=== PATIENT | female | born 1975 | race Caucasian/White ===

== ENCOUNTER 2019-01-20 19:47 | Emergency (ER) | payer BC ==
[2019-01-20 20:13] VITALS: BP 135/66
[2019-01-20] MEDS ORDERED: Sulfamethox/Trimethoprim DS 800/160* TAB PO ONE (20:49)
[2019-01-20] MEDS ORDERED: Phenazopyridine TAB* 100 MG PO ONE (20:49)
--- NOTE | 2019-01-20 20:54 | UC ---
Complaint Female HPI - HPI Summary HPI Summary: 43-year-old female presents with onset of general malaise, low back pain, dysuria, frequency, urgency, and mild nausea since yesterday. Denies fever, chills, abdominal pain, vomiting, hematuria, vaginal discharge, or abnormal bleeding. - History Of Current Complaint Chief Complaint: UCGU Stated Complaint: LOW BACK PAIN/URINARY SYMPTOMS Time Seen by Provider: 01/20/19 20:36 Hx Obtained From: Patient Hx Last Menstrual Period: "a week ago" Pain Intensity: 7 - Allergies/Home Medications Allergies/Adverse Reactions: Allergies Allergy/AdvReac Type Severity Reaction Status Date / Time No Known Allergies Allergy Verified 01/20/19 20:08 PMH/Surg Hx/FS Hx/Imm Hx Previously Healthy: Yes - Denies significant PMH - Surgical History Surgical History: Yes Surgery Procedure, Year, and Place: Tonsils - Family History Known Family History: Positive: Non-Contributory - Social History Occupation: Employed Full-time Lives: With Family Alcohol Use: None Substance Use Type: None Smoking Status (MU): Never Smoked Tobacco Review of Systems All Other Systems Reviewed And Are Negative: Yes Constitutional: Positive: Chills. Negative: Fever Skin: Negative: Rash Respiratory: Positive: Negative Cardiovascular: Positive: Negative Gastrointestinal: Positive: Abdominal Pain - suprapubic. Negative: Vomiting, Nausea Genitourinary: Positive: Dysuria, Frequency, Urgency. Negative: Hematuria, Vaginal/Penile Discharge, Abnormal Bleeding Musculoskeletal: Positive: Negative Neurological: Positive: Negative Is Patient Immunocompromised?: No Physical Exam - Summary Physical Exam Summary: GENERAL APPEARANCE: Alert and cooperative adult female who appears ill, non- toxic, and in no acute distress. CARDIAC: Normal S1 and S2. No S3, S4 or murmurs. Rhythm is regular. There is no peripheral edema, cyanosis or pallor. Extremities are warm and well perfused. Capillary refill is less than 2 seconds. Peripheral pulses intact. LUNGS: Clear to auscultation without rales, rhonchi, wheezing or diminished breath sounds. ABDOMEN: Positive bowel sounds. Soft, nondistended, nontender. No guarding or rebound. No masses or hepatosplenomegally. Mild bilateral CVA tenderness. MUSKULOSKELETAL: ROM intact to all extremities. No joint erythema or tenderness. Normal muscular development. Normal gait. SKIN: Skin normal color, texture and turgor with no lesions or eruptions. Triage Information Reviewed: Yes Vital Signs: Initial Vital Signs Temp 99.7 F 01/20/19 20:09 Pulse 102 01/20/19 20:09 Resp 20 01/20/19 20:09 BP 135/66 01/20/19 20:09 Pulse Ox 96 01/20/19 20:09 Vital Signs Reviewed: Yes Complaint Female Dx - Course Course Of Treatment: 43-year-old female presents with onset of general malaise, low back pain, dysuria, frequency, urgency, and mild nausea since yesterday. Denies fever, chills, abdominal pain, vomiting, hematuria, vaginal discharge, or abnormal bleeding. Afebrile. Mildly hypertensive and tachycardic otherwise vital signs stable. On exam patient appeared ill but nontoxic and in no acute distress. She had some mild bilateral CVA tenderness but otherwise had an unremarkable exam. Her [id number] urinalysis showed 1+ leukocyte esterase, 3+ blood, positive nitrites, 3+ protein, trace ketones, and 1+ bilirubin. Urine culture is pending. Reviewed the results with the patient. We discussed that her symptoms and urinalysis were suggestive of a urinary tract infection and with her CVA tenderness could be an early pyelonephritis. Will plan to treat her with Bactrim DS 1 tablet twice daily 7 days and provided her with Pyridium 100 mg 3 times a day 2 days to help with her discomfort. She received the first dose of each of these medications in the clinic. She is to follow-up with her primary care provider in 3 days if symptoms do not improve. Anticipatory guidance and warning symptoms were reviewed with the patient. Verbalizes understanding and agrees with plan of care. - Differential Dx/Diagnosis Differential Diagnosis/HQI/PQRI: Renal Colic, Urinary Tract Infection, Other - Pyelonephritis Provider Diagnosis: UTI (urinary tract infection) Discharge ED - Sign-Out/Discharge Documenting (check all that apply): Patient Departure All imaging exams completed and their final reports reviewed: No Studies - Discharge Plan Condition: Stable Disposition: HOME Prescriptions: Phenazopyridine TAB* [Pyridium 100 mg TAB*] 100 mg PO TID #4 tab Sulfamethox/Trimethoprim DS* [Bactrim DS 800/160 TAB*] 1 tab PO BID #12 tab Patient Education Materials: Urinary Tract Infection in Women (ED) Referrals: Jovana Brunson MD [Primary Care Provider] - 3 Days (If no improvement in symptoms.) Additional Instructions: Your urine test in the clinic today is suggestive of a urinary tract infection. We will start you on an antibiotic to treat for the infection. We will also send a urine culture today to see what bacteria grow out and make sure the antibiotic you were prescribed is appropriate to treat the infection. It will take 48-72 hours to get these results. We will contact you if there is any change in your treatment plan. Start Bactrim DS 1 tab twice a day for 7 days. We gave you the first dose in the clinic. Take Pyridium 1 tablet every 8 hours for next 2 days to help with the discomfort. This medication will turn your urine an orange color. We gave you the first dose in the clinic. Drink plenty of fluids. To help prevent urinary tract infections: 1) Be sure to wipe from front to back. 2) Urinate immediately after any sexual intercourse. 3) Avoid taking bubble baths. Follow up with your primary care provider in 3 days if symptoms do not improve. Seek immediate medical attention in the emergency room if you develop fever greater than 100.5 F, have severe abdominal pain, persistent vomiting, or any worsening of symptoms. - Billing Disposition and Condition Condition: STABLE Disposition: Home
== END 2019-01-20 21:03 | disposition home or self-care (01) ==
LOC: UCCORT 19:47
DX: N39.0 Urinary tract infection, site not specified (principal); R11.0 Nausea; R53.81 Other malaise
CPT/HCPCS: 81003; 87077; 87086; 87186; 99203; A9270-GY; G0463